=== PATIENT | male | born 1990 | race Caucasian/White ===

== ENCOUNTER 2017-01-24 22:36 | Emergency (ER) ==
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
[2017-01-25 00:22] VITALS: BP 114/68
--- NOTE | 2017-01-25 08:32 | Diag Imaging Result Document ---
PROCEDURE NAME: HEAD/C-SPINE W/O CONTRAST - 01/24/2017 CT OF THE HEAD WITHOUT CONTRAST: FINDINGS: There is chronic inflammatory change in both maxillary sinuses and throughout much of the ethmoid sinuses as well. There is some mucosal thickening and fluid in the left sphenoid sinus. No acute bony abnormalities are present. There is no evidence of mass effect, bleed, or abnormal extraaxial fluid collection intracranially. Compared to the previous study of 01/08/2017, there has been no significant change in the appearance of the brain. There has been some improvement in the ethmoid and maxillary sinus changes at least in the portions which are visible. Otherwise, there has been no significant change in the paranasal sinuses or calvarium. IMPRESSION: Chronic paranasal sinus disease. No evidence of acute intracranial disease. CT OF THE CERVICAL SPINE: FINDINGS: There is no evidence of fracture or subluxation. There is no prevertebral soft tissue swelling. Compared to the previous study of 01/08/2017, there has been no significant change in the appearance of the cervical spine. IMPRESSION: Stable CT of the cervical spine.
== END 2017-01-25 00:22 ==
LOC: ED 22:36
DX: S00.03XA Contusion of scalp, initial encounter (principal); S01.21XA Laceration without foreign body of nose, initial encounter; J32.9 Chronic sinusitis, unspecified; Y04.0XXA Assault by unarmed brawl or fight, initial encounter
CPT/HCPCS: 70450; 72125

== ENCOUNTER 2017-03-01 06:30 | Inpatient (IN) ==
[2017-03-01 07:55] LABS: MANUAL DIFF NEEDED? NO
[2017-03-01 08:05] LABS: BASO% 0.2 % (0.0-0.8); EOS# 0.04 X1000 (0.0-0.7); EOS% 0.3 % (0.0-10.0); HEMATOCRIT 37.8 % (42.0-52.0); HEMOGLOBIN 13.6 g/dL (14.0-18.0); IMM GRAN# 0.02 X1000 (0.0-0.04); IMM GRAN% 0.2 % (0.0-0.5); LYMPH# 1.19 X1000 (1.2-3.4); LYMPH% 9.1 % (20.5-51.1); MCV 83.4 FL (81-99); MONO# 0.85 X1000 (0.11-0.59); MONO% 6.5 % (1.7-9.3); NEUT% 83.7 % (42.2-75.2); PLT 214 X1000 (130-400); RBC 4.53 XMIL (4.7-6.1)
[2017-03-01 08:24] LABS: ALBUMIN 4.8 g/dL (3.5-5.0); CALCIUM 9.5 mg/dL (8.8-10.2); TOTAL BILIRUBIN 0.8 mg/dL (0.20-1.00); TOTAL PROTEIN 8.4 g/dL (6.3-8.3)
[2017-03-01 09:15] LABS: FREE T4 1.01 ng/dL (0.93-1.70)
[2017-03-01 09:23] LABS: POTASSIUM 3.3 mmol/L (3.5-5.1)
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
[2017-03-01] MEDS ORDERED: ZOFRAN IV PRN (10:49)
[2017-03-01] MEDS ORDERED: NS 1,000 ML IV SCH (11:00)
--- NOTE | 2017-03-01 12:24 | Diag Imaging Result Document ---
PROCEDURE NAME: CHEST-PORTABLE - 03/01/2017 CHEST SINGLE VIEW: COMPARISON: 03/27/2014. INDICATION: Admission. FINDINGS: Examination was performed portably. The cardiomediastinal silhouette is within normal limits. The pulmonary vasculature is not congested. No infiltrates or effusions are identified. IMPRESSION: No acute cardiopulmonary abnormality.
--- NOTE | 2017-03-01 12:32 | ED EKG INTERP ---
EKG Interpretation - EKG Time of EKG reading by physician:: 11:58 EKG Read and Signed by:: Will Dee EKG Interpretation (*Must complete 3 of following elements*): Abnormal (normal sinus rhythm, right bundle branch block, abnormal ECG) Rate: 91 Rhythm: Normal sinus rhythm [place]: normal QRS: RBB [place] Interval: normal ST Wave: normal
[2017-03-01 15:26] VITALS: BP 120/82
--- NOTE | 2017-03-01 18:16 | EKG Report ---
Test Performed on : 03/01/2017 11:58:09 AM Test Reason : Admit Blood Pressure : / mmHG Vent. Rate : 091 BPM Atrial Rate : 091 BPM P-R Int : 132 ms QRS Dur : 136 ms QT Int : 478 ms P-R-T Axes : 076 083 061 degrees QTc Int : 587 ms Normal sinus rhythm. Right bundle branch block Abnormal ECG When compared with ECG of 27-FEB-2017 23:42, (Unconfirmed) QT has lengthened Unconfirmed Result
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
--- NOTE | 2017-03-02 14:22 | DISCHARGE SUMMARY ---
ADMISSION DATE: 03/01/2017 DISCHARGE DATE: 03/01/2017 DISCHARGE DIAGNOSES: 1. Acute psychosis secondary to drug use. Resolved. Patient is currently awake, alert, oriented. He is in no distress. 2. Leukocytosis likely secondary to acute stress reaction. Patient has no signs nor symptoms of infection. Chest x-ray was clear. CONSULTATIONS: None. PROCEDURES: None. BRIEF HOSPITAL COURSE: Patient is a 27-year-old male, who was admitted as noted on the HPI. Treated in the usual fashion. Placed on sedation protocol. Thankfully after his sedation weaned off he was awake and alert. He was in no distress and therefore, he will be discharged home. DISPOSITION: Discussed with patient that he should certainly refrain from further drug use, that he should seek outpatient life counseling as well as drug counseling. Patient declined any further instructions. cc: Aryan Tsang MD
== END 2017-03-01 18:40 | disposition home or self-care (01) ==
LOC: P.ED 06:30 → P.EDIPHOLD 11:09
PROVIDERS: ATTEND Family Medicine